=== PATIENT | male | born 1990 | race African-American/Black ===

== ENCOUNTER 2016-08-02 19:29 | Emergency (ER) | payer SELFPAY ==
[2016-08-02 19:30] VITALS: BP 142/96; PULSE 56; RESP 16; TEMP 97.8; O2SAT 99
[2016-08-02] MEDS ORDERED: cefTRIAXone 250 MG VIAL IM ONE (21:15)
[2016-08-02] MEDS ORDERED: AZITHROMYCIN PWD FOR SUSP 1 GM PACKET PO ONE (21:15)
[2016-08-02] MEDS ORDERED: LIDOCAINE HCL 1% 50 ML VIAL IM ONE (21:15)
--- NOTE | 2016-08-02 21:16 | PD ---
HPI Chief Complaint: Complaint Time Seen by Provider: 21:13 Travel History International Travel<30 days: No Contact w/Intl Traveler<30days: No Traveled to known affect area: No History of Present Illness HPI 26-year-old black male presents to emergency department requesting treatment for possible STD. He states that he is started and the relationship with a female and there is question that there may be an STD. He states that he has not had any dysuria, frequency or discharge. He states that he is concerned he may been exposed to gonorrhea or chlamydia. PFS Past Medical History Medical History: Denies Significant Hx Tetanus Vaccination: < 5 Years Social History Alcohol Use: Yes Tobacco Use: Yes Allergies-Medications (Allergen,Severity, Reaction): Coded Allergies: No Known Allergies (Unverified , 08/02/16) Review of Systems Except as stated in HPI: all other systems reviewed are Neg Physical Exam Narrative GENERAL: This is a well-nourished, well-developed patient, in no apparent distress. SKIN: No rashes, ecchymoses or lesions. Warm and dry. HEAD: Atraumatic. Normocephalic. EYES: PERRL, EOMI, no discharge or injection. No scleral icterus. EARS: Clear NOSE: Nasal turbinates appear normal. THROAT: Mucosa pink and moist. Airway patent. NECK: Trachea midline. supple, moves head freely. LUNGS: Clear to auscultation. CV: Regular in rhythm. ABDOMEN: Soft nontender. EXT: No clubbing cyanosis or edema. Data Data Last Documented VS Vital Signs Date Time Temp Pulse Resp B/P Pulse Ox O2 Delivery O2 Flow Rate FiO2 08/02/16 19:30 97.8 56 16 142/96 99 Room Air Orders Azithromycin Powd Pack (Zithromax Powd P (08/02/16 21:15) Rocephin 250mg Vial Im X 1 (08/02/16 21:15) Lidocaine 1% Inj (50 Ml) (Xylocaine 1% I (08/02/16 21:15) MDM Medical Decision Making Medical Screen Exam Complete: Yes Emergency Medical Condition: Yes Medical Record Reviewed: Yes Differential Diagnosis MDM: Moderate Differential diagnoses: Chlamydia, gonorrhea, syphilis, chancroid, hepatitis, HIV, herpes Narrative Course Patient is given Rocephin 250 IM and Zithromax 1 g by mouth. This is a STD exposure Diagnosis Primary Impression: STD exposure Patient Instructions: General Instructions Additional Instructions: Rest. Partner notification. Follow-up with the [facility] for further STD testing such as HIV, syphilis and hepatitis. No intercourse until all partners treated. Always use a condom. Return to the ER if any problems. Disposition: 01 DISCHARGE HOME Condition: Az Sanchez Aug 02, 2016 21:16
== END 2016-08-02 21:48 | disposition home or self-care (01) ==
LOC: NEPK 19:29
DX: Z20.2 Contact with and (suspected) exposure to infections with a predominantly sexual mode of transmission (principal)
CPT/HCPCS: 96372; 99283; J0696